=== PATIENT | female | born 1990 | race Caucasian/White ===

== ENCOUNTER 2019-10-21 13:02 | Emergency (ER) | payer OTHER, MEDICAID ==
[~2019-10-21] VITALS: Ht 170.2 cm; Wt 52.2 kg
[2019-10-21 13:38] LABS: ABSOLUTE BASOPHILS 0.1 thou/uL (0.0-0.2); ABSOLUTE LYMPHOCYTES 1.9 thou/uL (0.8-5.3); ABSOLUTE MONOCYTES 1.5 thou/uL (0.0-1.2); ABSOLUTE NEUTROPHILS 13.4 thou/uL (1.6-8.1); BASOPHILS 0.6 %; EOSINOPHILS 0.1 %; HEMOGLOBIN 14.5 gm/dL (12.0-15.0); LYMPHOCYTES 11.4 %; MCH 30.2 pg (26.0-34.0); MCHC 35.4 g/dL (28.0-37.0); MCV 85.3 fL (80.0-100.0); MONOCYTES 8.9 %; MPV 8.8 fl. (7.2-11.1); NUCLEATED RBCS 0 /100WBC; PLATELET COUNT* 184 thou/uL (150-400); RBC 4.81 mil/uL (4.20-5.00); RDW-CV 13.4 % (10.5-14.5)
[2019-10-21 13:45] LABS: CALCIUM 8.9 mg/dL (8.5-10.1); CREATININE 0.9 mg/dL (0.6-1.3); POTASSIUM 4.1 mmol/L (3.5-5.1)
[2019-10-21 13:49] LABS: ALBUMIN 3.6 g/dL (3.4-5.0); TOTAL BILIRUBIN 0.6 mg/dL (<0.1-1.0); TOTAL PROTEIN 7.9 g/dL (6.4-8.2)
[2019-10-21 13:58] LABS: INFLUENZA A ANTIGEN Negative (Negative); INFLUENZA B ANTIGEN Negative (Negative)
[2019-10-21 14:01] LABS: URINE BLOOD TRACE (Negative); URINE CLARITY CLEAR; URINE COLOR YELLOW; URINE GLUCOSE-RANDOM NEGATIVE (Negative); URINE KETONES 1+ (Negative); URINE LEUKOCYTES-REFLEX NEGATIVE (Negative); URINE NITRITE-REFLEX NEGATIVE (Negative); URINE PROTEIN 2+ (Negative); URINE SPECIFIC GRAVITY >= 1.030 (1.005-1.030)
[2019-10-21 14:03] LABS: ICTOTEST (BILI CONFIRMATORY) Positive (Negative); URINE BILIRUBIN 2+ (Negative)
[2019-10-21 14:12] LABS: AMP/METHAMP Negative (Negative); BARBITURATES Negative (Negative); BENZODIAZEPINES Negative (Negative); COCAINE Negative (Negative); METHADONE Negative (Negative); OPIATES Negative (Negative); PCP Negative (Negative); THC Negative (Negative)
[2019-10-21 14:18] LABS: BACTERIA-REFLEX 1-9 Few /HPF (None Seen); CASTS None Seen /LPF (None Seen); CRYSTALS None Seen /LPF (None Seen); MUCUS None Seen strn/LPF (None Seen); SQUAMOUS >10 Many /LPF (0-3); URINE RBC 0-2 Rare /HPF (0-2); URINE WBC-REFLEX 0-5 Rare /HPF (0-5)
[2019-10-21] MEDS ORDERED: TYLENOL WITH CO1 TA1 PO (15:46)
[2019-10-21] MEDS ORDERED: ZPAK PO (15:46)
[2019-10-21 16:12] VITALS: BP 110/69
== END 2019-10-21 16:14 | disposition home or self-care (01) ==
LOC: M.ERS 13:02
PROVIDERS: Physician Assistant
DX: E86.0 Dehydration (principal); I95.1 Orthostatic hypotension; J02.9 Acute pharyngitis, unspecified; F17.210 Nicotine dependence, cigarettes, uncomplicated

== ENCOUNTER 2019-12-02 12:42 | Emergency (ER) | payer OTHER, MEDICAID ==
[~2019-12-02] VITALS: Ht 170.2 cm; Wt 52.2 kg
[~2019-12-02 12:42] MED LIST: TYLENOL WITH CO1 TA1 PO; ZPAK PO
[2019-12-02 13:12] LABS: INFLUENZA A ANTIGEN Negative (Negative); INFLUENZA B ANTIGEN Negative (Negative)
[2019-12-02] MEDS ORDERED: AMOXICILLIN 50500 MG PO (13:28)
[2019-12-02] MEDS ORDERED: MEDROLDOSEPACK PO (13:28)
[2019-12-02 14:21] VITALS: BP 102/62
== END 2019-12-02 14:23 | disposition home or self-care (01) ==
LOC: M.ERS 12:42
PROVIDERS: Physician Assistant
DX: J03.90 Acute tonsillitis, unspecified (principal)

== ENCOUNTER 2020-02-23 13:51 | Emergency (ER) | payer OTHER, MEDICAID ==
[~2020-02-23] VITALS: Ht 170.2 cm; Wt 52.2 kg
[~2020-02-23 13:51] MED LIST changes: +AMOXICILLIN 50500 MG PO; +MEDROLDOSEPACK PO
[2020-02-23] MEDS ORDERED: TYLENOL WITH CO1 TA1 PO (15:42)
[2020-02-23] MEDS ORDERED: AUGMENTIN 500-1 EACH PO (15:42)
[2020-02-23 16:47] VITALS: BP 90/58
== END 2020-02-23 16:47 | disposition home or self-care (01) ==
LOC: M.ERS 13:51
DX: J03.80 Acute tonsillitis due to other specified organisms (principal); B96.89 Other specified bacterial agents as the cause of diseases classified elsewhere; R07.81 Pleurodynia